=== PATIENT | male | born 1955 | race Caucasian/White ===

== ENCOUNTER 2018-04-16 09:51 | Emergency (ER) | payer MEDICAID ==
[~2018-04-16] VITALS: Ht 170.2 cm; Wt 76.0 kg
[~2018-04-16 09:51] MED LIST: ACET-1600 PO; ASPI-496 PO; ASPI-621 PO; ATOR20TA9 PO; CARV3.1212 PO; FURO80TA77 PO; HYDR25TA6 PO; LISI40TA PO; LOSA50TA2 PO; PANT40TA5 PO
[2018-04-16] MEDS ORDERED: KETOROLAC 30 MG/1 ML IM ONE (11:00)
[2018-04-16 11:27] LABS: MD YES; MEAN CORPUSCULAR HEMOGLOBIN 32.1 pg (27.5-34.5); MEAN CORPUSCULAR HGB CONC 34.1 g/dL (33.2-36.2); MEAN CORPUSCULAR VOLUME 94.2 fL (81-97); MEAN PLATELET VOLUME 8.2 fL (7.4-10.4); PLATELET COUNT 312 x10^3/uL (130-400); RED BLOOD COUNT 4.56 x10^6/uL (4.38-5.82); RED CELL DISTRIBUTION WIDTH 13.4 % (9.4-14.8)
[2018-04-16] MEDS ORDERED: KETOROLAC 30 MG/1 ML ONE (11:32)
[2018-04-16 11:33] LABS: BASOS#(MANUAL) 0.12 x10^3/uL (0-0.1); BASOS% (MANUAL) 1 % (0-1); LYMPH#(MANUAL) 1.74 x10^3/uL (1-3.4); LYMPHS% (MANUAL) 14 % (22-44); MONOS#(MANUAL) 0.37 x10^3/uL (0.3-2.7); MONOS% (MANUAL) 3 % (2-9); SEG#(MANUAL) 10.17 x10^3/uL (1.8-6.8); SEGS% (MANUAL) 82 % (42-75)
[2018-04-16 11:34] LABS: <PLATELET ESTIMATE> ADEQUATE; <PLT MORPHOLOGY> NORMAL PLT MORPH; <RBC MORPHOLOGY> NORMAL
[2018-04-16] MEDS ORDERED: CEFAZOLIN 1,000 MG IM ONE (12:00)
[2018-04-16] MEDS ORDERED: CEFAZOLIN 1,000 MG ONE (12:20)
[2018-04-16] MEDS ORDERED: SULFAMETH./TRIMETHOPRIM DS 800MG/160MG TABLET ONE (12:21)
[2018-04-16] MEDS ORDERED: LIDOCAINE-MPF 1%, 2ML ONE (12:21)
[2018-04-16] MEDS ORDERED: SULFAMETH./TRIMETHOPRIM DS 800MG/160MG TABLET PO ONE (12:30)
[2018-04-16 12:59] VITALS: BP 129/67
== END 2018-04-16 13:01 | disposition home or self-care (01) ==
LOC: ED 12:30
DX: L03.115 Cellulitis of right lower limb (principal); I10 Essential (primary) hypertension
CPT/HCPCS: 36415; 73610; 84550; 85025; 85651; 96372; 99285; J0690; J1885

== ENCOUNTER 2018-04-26 09:39 | Emergency (ER) | payer MEDICAID ==
[~2018-04-26] VITALS: Ht 170.2 cm; Wt 77.5 kg
[2018-04-26 09:47] VITALS: BP 163/85
[2018-04-26 10:34] LABS: ALBUMIN 4.3 g/dL (3.4-5.0); ANION GAP 10 mmol/L (5-15); CALCIUM 9.6 mg/dL (8.5-10.1); CHLORIDE 108 mmol/L (98-107)
[2018-04-26 10:35] LABS: CREATININE 1.41 mg/dL (0.7-1.3)
[2018-04-26] MEDS ORDERED: DEXAMETHASONE 4 MG TABLET ONE (10:37)
[2018-04-26] MEDS ORDERED: DEXAMETHASONE 4 MG TABLET PO ONE (11:00)
== END 2018-04-26 11:39 | disposition home or self-care (01) ==
LOC: ED 11:35
DX: M77.51 Other enthesopathy of right foot and ankle (principal); L73.9 Follicular disorder, unspecified; I10 Essential (primary) hypertension
CPT/HCPCS: 36415; 80048; 82040; 84550; 99284

== ENCOUNTER 2019-09-26 15:49 | Emergency (ER) | payer MEDICAID, MEDICARE ==
[~2019-09-26] VITALS: Ht 170.2 cm; Wt 75.0 kg
[~2019-09-26 15:49] MED LIST changes: -ASPI-621 PO; +ASPI81TA45 PO; +ATOR20TA37 PO; -ATOR20TA9 PO
--- NOTE | 2019-09-26 16:34 | NUR ---
PT WITH C/O INTERMITTANT SHARP CHEST PAINS THAT HAVE BEEN OCCURING FOR A COUPLE WEEKS, TODAY HE NOTICED THEM INCREASING IN FREQUENCY. PT DENIES SOB, TRAUMA. PT TO BP, CARD MONITOR, CONT PULSE OX
[2019-09-26] MEDS ORDERED: MAALOX/HYOSCYAMINE/LIDOCAINE 45 ML BTL ONE (17:16)
[2019-09-26] MEDS ORDERED: MAALOX/HYOSCYAMINE/LIDOCAINE 45 ML BTL PO ONE (17:30)
[2019-09-26 18:15] LABS: MEAN CORPUSCULAR HEMOGLOBIN 31.1 pg (27.5-34.5); MEAN CORPUSCULAR HGB CONC 33.3 g/dL (33.2-36.2); MEAN CORPUSCULAR VOLUME 93.5 fL (81-97); MEAN PLATELET VOLUME 7.6 fL (7.4-10.4); PLATELET COUNT 331 x10^3/uL (130-400); RED CELL DISTRIBUTION WIDTH 13.9 % (9.4-14.8)
[2019-09-26 18:23] LABS: ALANINE AMINOTRANSFERASE 41 U/L (12-78); ALBUMIN 4.3 g/dL (3.4-5.0); ANION GAP 6 mmol/L (5-15); CHLORIDE 108 mmol/L (98-107); CREATININE 1.27 mg/dL (0.7-1.3)
[2019-09-26 18:27] LABS: ALKALINE PHOSPHATASE 61 U/L (45-117); BILIRUBIN,TOTAL 1.1 mg/dL (0.2-1.0); TROPONIN I < 0.015 ng/mL (0.000-0.045)
[2019-09-26] MEDS ORDERED: HYDROcodone/APAP 5/325 TABLET ONE (18:41)
[2019-09-26 18:45] VITALS: BP 136/76
--- NOTE | 2019-09-26 18:47 | NUR ---
PT MEDICATED PER NOV, PT TO DC, STATES HAVING MUCH RELIEF FROM GI COCKTAIL GIVEN EARLIER
[2019-09-26] MEDS ORDERED: HYDROcodone/APAP 5/325 TABLET PO ONE (19:00)
[2019-09-26 19:26] LABS: MD YES
[2019-09-26 19:37] LABS: EOS#(MANUAL) 0.35 x10^3/uL (0.0-0.4); EOS% (MANUAL) 3 % (1-7); LYMPH#(MANUAL) 0.81 x10^3/uL (1-3.4); LYMPHS% (MANUAL) 7 % (22-44); MONOS#(MANUAL) 0.92 x10^3/uL (0.3-2.7); MONOS% (MANUAL) 8 % (2-9); SEG#(MANUAL) 9.43 x10^3/uL (1.8-6.8); SEGS% (MANUAL) 82 % (42-75)
[2019-09-26 19:38] LABS: <RBC MORPHOLOGY> NORMAL
[2019-09-26 19:39] LABS: <PLATELET ESTIMATE> ADEQUATE; <PLT MORPHOLOGY> NORMAL PLT MORPH
== END 2019-09-26 19:29 | disposition home or self-care (01) ==
LOC: ED 16:48
DX: K85.20 Alcohol induced acute pancreatitis without necrosis or infection (principal); R07.89 Other chest pain; I10 Essential (primary) hypertension
CPT/HCPCS: 36415; 71045; 76700; 80053; 83690; 84484; 85025; 93005; 99284

== ENCOUNTER 2019-12-05 08:06 | Outpatient (CLI) | payer MEDICARE ==
[2019-12-05] MEDS ORDERED: AMLO10TA8 PO (08:37)
[2019-12-05] MEDS ORDERED: CHOL40002 PO (08:37)
[2019-12-05] MEDS ORDERED: LOSA100T14 PO (08:37)
== END 2019-12-05 23:59 | disposition home or self-care (01) ==
LOC: STAR 08:06
PROVIDERS: ATTEND Surgery
DX: Z01.818 Encounter for other preprocedural examination (principal); K40.91 Unilateral inguinal hernia, without obstruction or gangrene, recurrent; I45.10 Unspecified right bundle-branch block; R00.1 Bradycardia, unspecified
CPT/HCPCS: 93005

== ENCOUNTER 2019-12-12 08:15 | Day surgery (SDC) | payer MEDICARE ==
[~2019-12-12] VITALS: Ht 172.7 cm; Wt 71.2 kg
[~2019-12-12 08:15] MED LIST changes: +AMLO10TA8 PO; +CHOL40002 PO; +LOSA100T14 PO
[2019-12-12] MEDS ORDERED: LACTATED RINGERS 1,000 ML IV SCH (08:40)
[2019-12-12] MEDS ORDERED: GABAPENTIN 300 MG CAPSULE PO STA (08:41)
[2019-12-12] MEDS ORDERED: ACETAMINOPHEN 500 MG TABLET PO STA (08:41)
[2019-12-12 08:42] VITALS: BP 145/77
[2019-12-12] MEDS ORDERED: FENTANYL PF 250 MCG/5ML ONE (08:55)
[2019-12-12] MEDS ORDERED: MIDAZOLAM 1 MG/ML, 2ML ONE (08:55)
[2019-12-12] MEDS ORDERED: CEFAZOLIN 1,000 MG ONE (08:56)
[2019-12-12] MEDS ORDERED: ROCURONIUM 10MG/ML,5ML ONE (08:56)
[2019-12-12] MEDS ORDERED: PROPOFOL 10 MG/ML, 20ML ONE (08:56)
[2019-12-12] MEDS ORDERED: NEOSTIGMINE 1 MG/ML, 10ML ONE (08:56)
[2019-12-12] MEDS ORDERED: GLYCOPYRROLATE 0.2MG/1ML, 5ML ONE (08:56)
[2019-12-12] MEDS ORDERED: BUPIVACAINE/PF-EPI 0.5% 1:200K ONE (09:59)
[2019-12-12] MEDS ORDERED: FENTANYL PF 100 MCG/2ML IV PRN (10:00)
[2019-12-12] MEDS ORDERED: LABETALOL 5MG/ML, 20ML IV PRN (10:00)
[2019-12-12] MEDS ORDERED: ONDANSETRON 2MG/ML, 2ML IV PRN (10:00)
[2019-12-12] MEDS ORDERED: OXYcodone 5 MG/5 ML ORAL.SOL UDC PO PRN (10:00)
[2019-12-12] MEDS ORDERED: MORPHINE SULFATE 4 MG/ML, 1ML IVPush PRN (10:00)
[2019-12-12] MEDS ORDERED: MEPERIDINE/PF 25MG/ML,1ML IVPush PRN (10:00)
[2019-12-12] MEDS ORDERED: HYDROmorphone 2 MG/ML, 1ML IVPush PRN (10:00)
[2019-12-12] MEDS ORDERED: hydrALAzine 20 MG/ML, 1ML IV PRN (10:00)
[2019-12-12] MEDS ORDERED: BUPIVACAINE/PF-EPI 0.5% 1:200K INFIL ONE (10:28)
[2019-12-12] MEDS ORDERED: MEPERIDINE/PF 25MG/ML,1ML ONE (11:50)
== END 2019-12-12 14:50 | disposition home or self-care (01) ==
LOC: OUT 08:15
PROVIDERS: ATTEND Surgery
DX: K40.91 Unilateral inguinal hernia, without obstruction or gangrene, recurrent (principal); I10 Essential (primary) hypertension; F10.21 Alcohol dependence, in remission; F12.10 Cannabis abuse, uncomplicated; Z79.899 Other long term (current) drug therapy; Z98.41 Cataract extraction status, right eye; Z98.42 Cataract extraction status, left eye; Z98.890 Other specified postprocedural states; Z82.49 Family history of ischemic heart disease and other diseases of the circulatory system
CPT/HCPCS: 49520; C1781; J0690; J2175; J2250; J2704; J2710; J3010; J7120